=== PATIENT | female | born 1955 | race Caucasian/White ===

== ENCOUNTER → 2016-04-27 | Outpatient (REF) | payer BC ==
[~2016-04-27] MED LIST: /CIPR75TA PO; CIPR500T4 OR; FLAG500T PO
[2016-04-27 11:38] LABS: BASO # 0.1 K/mm3 (0.0-0.2); BASO % 1.1 % (0.0-1.0); EOS # 0.2 K/mm3 (0.0-0.50); EOS % 3.4 % (0.0-3.0); LARGE UNSTAINED CELL # 0.2 K/mm3 (0.0-0.4); LARGE UNSTAINED CELL % 2.9 % (0.0-4.0); LYMPH # 1.6 K/mm3 (1.5-4.5); LYMPH % 23.6 % (24.0-44.0); MEAN CORPUSCULAR HEMOGLOBIN 28.5 pg (27.0-33.0); MEAN CORPUSCULAR HGB CONC 32.4 g/dl (32.0-36.5); MEAN CORPUSCULAR VOLUME 87.9 fl (80.0-96.0); MONO # 0.4 K/mm3 (0.0-0.8); MONO % 5.8 % (0.0-5.0); NEUTROPHILS # 4.2 K/mm3 (1.8-7.7); NEUTROPHILS % 63.1 % (36.0-66.0); PLATELET COUNT, AUTOMATED 315 k/mm3 (150-450); WHITE BLOOD COUNT 6.6 K/mm3 (4.0-10.0)
[2016-04-27 12:18] LABS: ALBUMIN 3.8 GM/DL (3.2-5.2); ALBUMIN/GLOBULIN RATIO 1.06 (1.00-1.93); ALKALINE PHOSPHATASE 66 U/L (45-117); ALT/SGPT 26 U/L (12-78); ANION GAP 10 MEQ/L (8-16); AST/SGOT 18 U/L (15-37); BILIRUBIN,TOTAL 0.6 MG/DL (0.2-1.0); BLOOD UREA NITROGEN 15 MG/DL (7-18); CALCIUM LEVEL 8.7 MG/DL (8.8-10.2); CARBON DIOXIDE LEVEL 28 MEQ/L (21-32); CHLORIDE LEVEL 104 MEQ/L (98-107); CHOLESTEROL LEVEL 216 MG/DL (<200); CREATININE FOR GFR 0.75 MG/DL (0.55-1.02); GLOMERULAR FILTRATION RATE > 60.0 (>45); GLUCOSE, FASTING 86 MG/DL (80-110); POTASSIUM SERUM 4.3 MEQ/L (3.5-5.1); SODIUM LEVEL 142 MEQ/L (136-145); TOTAL PROTEIN 7.4 GM/DL (6.4-8.2); TRIGLYCERIDES LEVEL 204 MG/DL (<150)
== END ==
LOC: M SFHCCLAY 09:37
PROVIDERS: ATTEND Family Medicine
DX: Z13.0 Encounter for screening for diseases of the blood and blood-forming organs and certain disorders involving the immune mechanism (principal); Z13.220 Encounter for screening for lipoid disorders; Z13.29 Encounter for screening for other suspected endocrine disorder

== ENCOUNTER → 2016-06-15 | Outpatient (CLI) | payer BC ==
[~2016-06-15] VITALS: Ht 162.6 cm; Wt 78.9 kg
[~2016-06-15] MED LIST changes: +CENTTAB PO; +COLA100C3 PO; +FISH1000 PO; +NATU400T PO; +NS 1,000 ML IV SCH; +PROPOFOL 200 MG/20 ML VIAL As Ordered ONE; +TAMO20TA4 PO; +VITA100037 PO
--- NOTE | 2016-06-15 11:14 | ROOR ---
Patient Name: Naomie Chin Procedure Date: 06/15/2016 10:59 AM Date of : 1955 Age: 60 Room: [facility] Gender: Female Note Status: Finalized Procedure: Colonoscopy Indications: Screening for colorectal malignant neoplasm Providers: Nima Islas Jr, MD Referring MD: KORY FELIX DO Requesting Provider: Medicines: Propofol per Anesthesia Complications: No immediate complications. Procedure: Pre-Anesthesia Assessment: - Prior to the procedure, a History and Physical was performed, and patient medications and allergies were reviewed. The patient is competent. The risks and benefits of the procedure and the sedation options and risks were discussed with the patient. All questions were answered and informed consent was obtained. Patient identification and proposed procedure were verified by the physician and the nurse in the pre-procedure area and in the procedure room. Mental Status Examination: alert and oriented. Airway Examination: normal oropharyngeal airway and neck mobility. Respiratory Examination: clear to auscultation. CV Examination: normal. ASA Grade Assessment: II - A patient with mild systemic disease. After reviewing the risks and benefits, the patient was deemed in satisfactory condition to undergo the procedure. The anesthesia plan was to use moderate sedation / analgesia (conscious sedation). Immediately prior to administration of medications, the patient was re-assessed for adequacy to receive sedatives. The heart rate, respiratory rate, oxygen saturations, blood pressure, adequacy of pulmonary ventilation, and response to care were monitored throughout the procedure. The physical status of the patient was re-assessed after the procedure. The Colonoscope was introduced through the anus and advanced to the cecum, identified by appendiceal orifice and ileocecal valve. The colonoscopy was performed without difficulty. The patient tolerated the procedure well. The quality of the bowel preparation was adequate and good. Findings: The perianal and digital rectal examinations were normal. Pertinent negatives include normal sphincter tone, no palpable rectal lesions and no anal lesion or abnormality was detected. A few small-mouthed diverticula were found in the descending colon and transverse colon. The rectum, recto-sigmoid colon, descending colon, transverse colon, ascending colon, cecum, appendiceal orifice, ileocecal valve and anastomosis appeared normal. Impression: - Diverticulosis in the descending colon and in the transverse colon. - The rectum, recto-sigmoid colon, descending colon, transverse colon, ascending colon, cecum, appendiceal orifice, ileocecal valve and colonic anastomosis are normal. - No specimens collected. Recommendation: - Discharge patient to home (ambulatory). - Repeat colonoscopy in 10 years for screening purposes. Nima Islas MD Nima Islas Jr, MD 06/15/2016 11:13:36 AM This report has been signed electronically. Number of Addenda: 0 Note Initiated On: 06/15/2016 10:59 AM Estimated Blood Loss: Estimated blood loss: none.
[2016-06-15 11:50] VITALS: BP 137/84
== END ==
LOC: M OPP 10:10
PROVIDERS: ATTEND Surgery
DX: Z12.11 Encounter for screening for malignant neoplasm of colon (principal); K57.30 Diverticulosis of large intestine without perforation or abscess without bleeding; R12 Heartburn; Z79.899 Other long term (current) drug therapy; Z98.0 Intestinal bypass and anastomosis status; Z92.3 Personal history of irradiation; Z85.3 Personal history of malignant neoplasm of breast
CPT/HCPCS: 99156; G0121

== ENCOUNTER → 2016-10-24 | Outpatient (CLI) | payer BC ==
[~2016-10-24] MED LIST changes: -COLA100C3 PO; +COLA100C5 PO; -NS 1,000 ML IV SCH; -PROPOFOL 200 MG/20 ML VIAL As Ordered ONE; -VITA100037 PO; +VITA100067 PO
--- NOTE | 2016-10-24 11:43 | REPMRS ---
Patient History The patient states she had a clinical breast exam in 2016. Patient is postmenopausal and has history of cancer in the right breast at age 57. Family history of unknown cancer in mother at age 48, unknown cancer in maternal aunt at age 58, and unknown cancer in maternal uncle at age 54. Malignant radio exam breast specimen of the right breast, December 09, 2012. Malignant localization of breast nodule of the right breast, December 09, 2012. Malignant stereotatic breast biopsy of the right breast, October 30, 2012. Radiation therapy of the right breast. Taking tamoxifen for 10 months. Digital Mammo Screening Bilat: October 24, 2016 - Exam #: [id number] Bilateral CC and MLO view(s) were taken. Technologist: Reina Powers, Technologist Prior study comparison: October 22, 2015, bilateral digital mammo screening bilat performed at [facility]. September 22, 2014, bilateral digital mammo screening bilat performed at [facility]. FINDINGS: There are scattered fibroglandular densities. There is no evidence of cancer on this mammogram. Large coarse benign appearing calcifications are present. No significant changes when compared with prior studies. ASSESSMENT: BI-RADS/ACR category 2 mammogram. Benign finding(s). Recommendation Routine screening mammogram of both breasts in 1 year (for women over age 40). This mammogram was interpreted with the aid of an FDA-approved computer-aided dectection system. Electronically Signed By: Haris Enciso MD 10/24/16 5122
== END ==
LOC: M RAD 10:26
PROVIDERS: ATTEND Family Medicine
DX: Z12.39 Encounter for other screening for malignant neoplasm of breast (principal)

== ENCOUNTER → 2016-11-01 | Outpatient (CLI) | payer BC ==
--- NOTE | 2016-11-03 09:54 | DEXA ---
AP SPINE L1 - L4 1.459 2.1 3.4 LT FEMUR TOTAL 1.270 2.1 3.1 RT FEMUR TOTAL 1.258 2.0 3.0 TOTAL BODY TOTAL OTHER DUAL FEMUR FRAX* ASSESSMENT Risk factors: Not done. 10 year probability of fracture Major osteoporotic fracture % Hip fracture % COMMENTS: Normal bone densitometry of the spine and hips. The decreased density of the spine does not represent a significant change. The increased density of the left hip does not represent a significant change. The increased density of the right hip does not represent a significant change. The density of the spine has decreased 3.8% since the initial exam on 2010. The spine density has decreased 1.1% since the most recent exam on 10/21/2014. The density of the left hip has decreased 2.4% since the initial exam on 2010. The density of the left hip has increased 0.1% since the most recent exam on 07/2014. The density of the right hip has decreased 2.8% since the initial exam on 2010. The density of the right hip has increased 0.6% since the most recent exam on . FOLLOW-UP: Recommendation for the next bone density exam: 5 years. LISBET
== END ==
LOC: M WHC 14:42
PROVIDERS: ATTEND Obstetrics & Gynecology
DX: Z13.820 Encounter for screening for osteoporosis (principal)

== ENCOUNTER → 2018-05-08 | Outpatient (CLI) | payer BC ==
[~2018-05-08] MED LIST changes: +FISH100049 PO; +PROHANCE 279.3MG/ML 15ML VIAL (A9576) As Ordered ONE; -TAMO20TA4 PO; +TAMO20TA8 PO
--- NOTE | 2018-05-13 13:08 | REP ---
Bilateral breast MRI study without and with IV gadolinium: History: History of ductal carcinoma in situ. Multifocal tumor. Status post lumpectomy and radiation therapy in 2013, comparison mammography October 24, 2016. Technique: 3 Demetria MRI imaging was performed with a dedicated breast coil. Axial, coronal, and sagittal T1 and T2-weighted scans were obtained with and without fat saturation in the usual fashion. The study includes dynamically acquired post gadolinium enhanced imaging subtraction imaging. Maximal intensity projection and multiplanar re-formation imaging is included as well. The study was interpreted with the aid of [employer], an FDA approved computer-aided detection (CAD) software program, on a dedicated breast MRI work station. The gadolinium enhancement dose is 15 mL of intravenous ProHance. Findings: T2-weighted scans show no evidence of axillary adenopathy on either side. There are post-treatment fibrotic changes in the lateral and superior aspect of the right breast. There is a magnetic field susceptibility artifact in the right breast from the needle biopsy marker clip. There is also a similar artifact in the left breast. High-resolution T1 and T2-weighted imaging shows no suspicious morphologic abnormality on either side. Dynamically acquired sequential post gadolinium enhanced images show no suspicious focus of enhancement and/or washout in either breast to suggest malignancy. Subtraction images show no additional abnormality. There is no evidence of chest wall disease. Impression: BI-RADS category 2 benign bilateral breast MRI findings. Electronically Signed by Nadeem Valdez MD 05/13/2018 01:27 P
== END ==
LOC: M RAD 08:45
PROVIDERS: ATTEND Internal Medicine Hematology & Oncology
DX: R92.2 Inconclusive mammogram (principal); Z85.3 Personal history of malignant neoplasm of breast; Z92.3 Personal history of irradiation
CPT/HCPCS: A9576; C8908

== ENCOUNTER → 2018-11-29 | Outpatient (CLI) | payer BC ==
[~2018-11-29] MED LIST changes: -PROHANCE 279.3MG/ML 15ML VIAL (A9576) As Ordered ONE
--- NOTE | 2018-12-03 14:36 | DEXA ---
AP SPINE L1 - L4 1.466 2.2 3.6 LT FEMUR TOTAL 1.266 2.0 3.1 LT NECK 1.141 0.7 2.1 RT FEMUR TOTAL 1.222 1.7 2.8 RT NECK 1.123 0.6 2.0 TOTAL BODY TOTAL OTHER COMMENTS: Normal bone densitometry of the spine and hips. The increased density of the spine does not represent a significant change. The decreased density of the left hip does not represent significant change. The decreased density of the right hip does represent a significant change. The density of the spine has decreased 3.4% since the initial exam on 07/27/2010. The spine density has increased 0.5% since the most recent exam on 11/01/2016. The density of the left hip has decreased 2.7% since the initial exam on 07/27/2010. The density of the left hip has decreased 0.3% since the most recent exam on 11/01/2016. The density of the right hip has decreased 5.6% since the initial exam on 07/27/2010. The density of the right hip has decreased 2.9% since the most recent exam on 11/01/2016. FOLLOW-UP: Recommendation for the next bone density exam: 5 years. LISBET
== END ==
LOC: M WHC 10:51
PROVIDERS: ATTEND Obstetrics & Gynecology
DX: Z13.820 Encounter for screening for osteoporosis (principal); M85.851 Other specified disorders of bone density and structure, right thigh; M85.852 Other specified disorders of bone density and structure, left thigh; M85.88 Other specified disorders of bone density and structure, other site

== ENCOUNTER → 2019-05-15 | Outpatient (REF) | payer BC | LOC: M SFHCCLAY 11:55 | PROVIDERS: ATTEND Family Medicine | DX: J02.9 Acute pharyngitis, unspecified (principal) ==

== ENCOUNTER → 2020-11-01 | Outpatient (REF) | payer MEDICARE, BC ==
[~2020-11-01] MED LIST changes: +VITATAB73 PO
[2020-11-01 16:43] LABS: BASO # 0.1 10^3/uL (0.0-0.2); BASO % 1.9 % (0.0-1.0); EOS # 0.3 10^3/uL (0.0-0.5); EOS % 3.8 % (0.0-3.0); HEMATOCRIT 40.2 % (36.0-47.0); HEMOGLOBIN 13.1 g/dl (12.0-15.5); LYMPH # 1.9 10^3/uL (1.5-5.0); LYMPH % 26.8 % (24.0-44.0); MEAN CORPUSCULAR HEMOGLOBIN 28.9 pg (27.0-33.0); MEAN CORPUSCULAR HGB CONC 32.6 g/dl (32.0-36.5); MEAN CORPUSCULAR VOLUME 88.7 fl (80.0-96.0); MONO # 0.7 10^3/uL (0.0-0.8); MONO % 9.9 % (2.0-8.0); NEUTROPHILS # 4.1 10^3/uL (1.5-8.5); NEUTROPHILS % 57.5 % (36.0-66.0); PLATELET COUNT, AUTOMATED 352 10^3/uL (150-450); RED BLOOD COUNT 4.53 10^6/uL (4.00-5.40); WHITE BLOOD COUNT 7.2 10^3/uL (4.0-10.0)
[2020-11-01 17:11] LABS: ALBUMIN 4.1 GM/DL (3.2-5.2); ALT/SGPT 32 U/L (12-78); BILIRUBIN,TOTAL 0.7 MG/DL (0.2-1.0); BLOOD UREA NITROGEN 12 MG/DL (7-18); CALCIUM LEVEL 9.7 MG/DL (8.8-10.2); CARBON DIOXIDE LEVEL 30 MEQ/L (21-32); CHLORIDE LEVEL 108 MEQ/L (98-107); CHOLESTEROL LEVEL 189 MG/DL (<200); CHOLESTEROL RISK RATIO 3.315 (<5); CREATININE FOR GFR 0.74 MG/DL (0.55-1.30); GLOMERULAR FILTRATION RATE > 60.0 (>45); GLUCOSE, FASTING 91 MG/DL (70-100); HDL CHOLESTEROL 57 MG/DL (>40); LDL CHOLESTEROL 112 MG/DL (<100); NON-HDL-C 132 MG/DL; POTASSIUM SERUM 4.9 MEQ/L (3.5-5.1); SODIUM LEVEL 140 MEQ/L (136-145); TOTAL PROTEIN 7.4 GM/DL (6.4-8.2); TRIGLYCERIDES LEVEL 101 MG/DL (<150)
== END ==
LOC: M SFHCCLAY 10:18
PROVIDERS: ATTEND Family Medicine
DX: E78.2 Mixed hyperlipidemia (principal); Z23 Encounter for immunization
CPT/HCPCS: 80053; 80061; 85025; 90732; G0009; G0463

== ENCOUNTER → 2020-12-15 | Outpatient (CLI) | payer MEDICARE ==
--- NOTE | 2020-12-15 09:12 | DEXAMM ---
INDICATION: SCREEN FOR OSTEOPOROSIS. COMPARISON: Comparison study November 29, 2018. TECHNIQUE: Bone density was measured using dual-energy x-ray absorptionmetry (DEXA). FINDINGS: AP SPINE L1-L4 BMD 1.489 g/cm2 Young Adult T-Score 2.4 Age Matched Z-Score 4.0. LT FEMUR, TOTAL BMD 1.279 g/cm2 Young Adult T-Score 2.2 Age Matched Z-Score 3.3. LT NECK BMD 1.184 g/cm2 Young Adult T-Score 1.1 Age Matched Z-Score 2.5. RT FEMUR, TOTAL BMD 1.216 g/cm2 Young Adult T-Score 1.7 Age Matched Z-Score 2.8. RT NECK BMD 1.082 g/cm2 Young Adult T-Score 0.3 Age Matched Z-Score 1.8. IMPRESSION: There is normal bone density of the spine. There is normal bone density of the left hip. There is normal bone density of the right hip. The density of the spine has decreased 1.8% since the initial exam on July 27, 2010. The density of the spine increased 1.6% since most recent exam on November 29, 2018. The density of the left hip has decreased 1.7% since initial exam on July 27, 2010. The density of the left hip has increased 1.0% since most recent exam on November 29, 2018. The density of the right hip has decreased 6.0% since the initial exam on July 27, 2010. The density of the right hip has decreased 0.5% since the most recent exam on November 29, 2018. FOLLOW-UP: Recommendation for the next bone density exam: 5-10 years. <Electronically signed by Rd Valdez > 12/15/20 0909
== END ==
LOC: M WHC 08:16
PROVIDERS: ATTEND Obstetrics & Gynecology
DX: M81.0 Age-related osteoporosis without current pathological fracture (principal)

== ENCOUNTER → 2021-11-25 | Outpatient (CLI) | payer BC, MEDICARE | LOC: M WHC 13:26 | PROVIDERS: ATTEND Obstetrics & Gynecology | DX: Z53.9 Procedure and treatment not carried out, unspecified reason (principal) ==

== ENCOUNTER → 2022-05-18 | Outpatient (REF) | payer MEDICARE, BC ==
[2022-05-18 17:45] LABS: BASO # 0.1 10^3/uL (0.0-0.2); EOS # 0.2 10^3/uL (0.0-0.5); LYMPH # 1.6 10^3/uL (1.5-5.0); LYMPH % 26.3 % (24.0-44.0); MEAN CORPUSCULAR HEMOGLOBIN 28.9 pg (27.0-33.0); MEAN CORPUSCULAR HGB CONC 32.5 g/dl (32.0-36.5); MEAN CORPUSCULAR VOLUME 88.9 fl (80.0-96.0); MONO # 0.7 10^3/uL (0.0-0.8); MONO % 11.2 % (2.0-8.0); NEUTROPHILS # 3.4 10^3/uL (1.5-8.5); NEUTROPHILS % 56.3 % (36.0-66.0); PLATELET COUNT, AUTOMATED 366 10^3/uL (150-450)
[2022-05-18 18:05] LABS: ALBUMIN 4.1 G/DL (3.2-5.2); ALKALINE PHOSPHATASE 93 U/L (46-116); ALT/SGPT 29 U/L (7.0-40); AST/SGOT 24 U/L (<34); BLOOD UREA NITROGEN 15 MG/DL (9-23); CALCIUM LEVEL 9.4 MG/DL (8.3-10.6); CARBON DIOXIDE LEVEL 31 MMOL/L (20-31); CHLORIDE LEVEL 104 MMOL/L (98-107); CREATININE FOR GFR 0.76 MG/DL (0.55-1.30); GLOMERULAR FILTRATION RATE > 60.0 (>45); GLUCOSE, FASTING 81 MG/DL (74-106); POTASSIUM SERUM 4.6 MMOL/L (3.5-5.1); SODIUM LEVEL 140 MMOL/L (136-145); TOTAL PROTEIN 7.3 G/DL (5.7-8.2)
== END ==
LOC: M SFHCCLAY 10:49
PROVIDERS: ATTEND Family Medicine
DX: K21.9 Gastro-esophageal reflux disease without esophagitis (principal); R10.11 Right upper quadrant pain

== ENCOUNTER → 2022-12-18 | Outpatient (CLI) | payer MEDICARE | LOC: M WHC 10:30 | PROVIDERS: ATTEND Obstetrics & Gynecology | DX: Z13.820 Encounter for screening for osteoporosis (principal); Z78.0 Asymptomatic menopausal state ==

== ENCOUNTER → 2023-11-06 | Outpatient (REF) | payer MEDICARE ==
[2023-11-06 17:21] LABS: HEMOGLOBIN 14.1 g/dl (12.0-15.5); MEAN CORPUSCULAR HEMOGLOBIN 28.8 pg (27.0-33.0); MEAN CORPUSCULAR HGB CONC 32.8 g/dl (32.0-36.5); MEAN CORPUSCULAR VOLUME 87.9 fl (80.0-96.0); PLATELET COUNT, AUTOMATED 377 10^3/uL (150-450); RED BLOOD COUNT 4.89 10^6/uL (4.00-5.40); WHITE BLOOD COUNT 7.3 10^3/uL (4.0-10.0)
[2023-11-06 17:50] LABS: ALBUMIN 4.1 G/DL (3.2-5.2); ALKALINE PHOSPHATASE 108 U/L (46-116); ALT/SGPT 33 U/L (7.0-40); AST/SGOT 24 U/L (<34); BLOOD UREA NITROGEN 13 MG/DL (9-23); CALCIUM LEVEL 9.5 MG/DL (8.3-10.6); CARBON DIOXIDE LEVEL 24 MMOL/L (20-31); CHLORIDE LEVEL 107 MMOL/L (98-107); CHOLESTEROL LEVEL 178 MG/DL (<200); CHOLESTEROL RISK RATIO 3.59 (<5); CREATININE FOR GFR 0.67 MG/DL (0.55-1.30); GLOMERULAR FILTRATION RATE > 60.0 (>45); GLUCOSE, FASTING 97 MG/DL (74-106); HDL CHOLESTEROL 49.5 MG/DL (>40); LDL CHOLESTEROL 96.9 MG/DL (<100); NON-HDL-C 128.5 MG/DL; POTASSIUM SERUM 4.3 MMOL/L (3.5-5.1); SODIUM LEVEL 138 MMOL/L (136-145); TOTAL PROTEIN 7.4 G/DL (5.7-8.2); TRIGLYCERIDES LEVEL 158 MG/DL (<150)
== END ==
LOC: M SFHCCLAY 10:21
PROVIDERS: ATTEND Family Medicine
DX: K21.9 Gastro-esophageal reflux disease without esophagitis (principal); E78.2 Mixed hyperlipidemia

== ENCOUNTER → 2024-02-27 | Outpatient (CLI) | payer MEDICARE | LOC: M CLY 15:44 | PROVIDERS: ATTEND Physician Assistant | DX: R05.1 Acute cough (principal) ==

== ENCOUNTER → 2024-11-10 | Outpatient (REF) | payer MEDICARE | LOC: M SFHCCLAY 10:46 | PROVIDERS: ATTEND Family Medicine | DX: Z53.9 Procedure and treatment not carried out, unspecified reason (principal) ==

== ENCOUNTER → 2024-11-10 | Outpatient (CLI) | payer MEDICARE ==
[2024-11-10 16:24] LABS: PLATELET COUNT, AUTOMATED 326 10^3/uL (150-450)
[2024-11-10 16:46] LABS: ALT/SGPT 30 U/L (7.0-40); AST/SGOT 26 U/L (<34); CALCIUM LEVEL 9.4 MG/DL (8.3-10.6); CARBON DIOXIDE LEVEL 28 MMOL/L (20-31); CHLORIDE LEVEL 103 MMOL/L (98-107); CHOLESTEROL LEVEL 181 MG/DL (<200); CHOLESTEROL RISK RATIO 3.55 (<5); CREATININE FOR GFR 0.72 MG/DL (0.55-1.30); GLOMERULAR FILTRATION RATE > 90.0 (>45); LDL CHOLESTEROL 97.1 MG/DL (<100); MAGNESIUM LEVEL 2.0 MG/DL (1.8-2.4); NON-HDL-C 130.1 MG/DL; POTASSIUM SERUM 4.1 MMOL/L (3.5-5.1); SODIUM LEVEL 141 MMOL/L (136-145); TRIGLYCERIDES LEVEL 165 MG/DL (<150)
== END ==
LOC: M LAB 15:01
PROVIDERS: ATTEND Family Medicine
DX: K21.9 Gastro-esophageal reflux disease without esophagitis (principal); E78.2 Mixed hyperlipidemia

== ENCOUNTER → 2024-12-30 | Outpatient (REF) | payer MEDICARE | LOC: M SFHCCLAY 15:07 | PROVIDERS: ATTEND Physician Assistant | DX: R30.0 Dysuria (principal) ==

== ENCOUNTER → 2024-12-30 | Outpatient (CLI) | payer MEDICARE, OTHER | LOC: M WHC 10:58 | PROVIDERS: ATTEND Obstetrics & Gynecology | DX: Z13.820 Encounter for screening for osteoporosis (principal); Z78.0 Asymptomatic menopausal state ==